=== PATIENT | male | born 1940 | race Asian ===

== ENCOUNTER 2021-03-04 17:43 | Emergency (ER) ==
[2021-03-04 18:39] LABS: #Basophils 0.1 10x3/uL (0.0-0.2); #Eosinphils 0.1 10x3/uL (0.0-0.5); #Neutrophils 4.6 10x3/uL (1.5-8.4); %Basophils 0.8 % (0.0-2.0); %Eosinophils 1.2 % (0.0-6.0); %Lymphocytes 12.3 % (18.0-47.0); %Monocytes 15.1 % (0.0-10.0); %Neutrophils 70.3 % (40.0-75.0); Mean Corpuscular HGB CONC 33.7 g/dL (32.0-36.0); Mean Platelet Volume 9.9 fl (7.4-10.4); Platelet Count 211 10x3/uL (150-450); RBC Distribution Width 13.4 % (11.5-14.5); Red Blood Cell (RBC) Count 4.38 10x6/uL (4.32-5.72); White Blood Cell (WBC) Count 6.5 10x3/uL (3.5-10.5)
[2021-03-04 18:52] LABS: ALT (SGPT) 20 U/L (8-55); Albumin 3.8 g/dL (3.4-4.8); Alkaline Phosphatase 65 U/L (40-110); Anion Gap 15 mmol/L (10-20); BUN (Urea Nitrogen) 13 mg/dL (8.4-25.7); Bilirubin, Total 0.4 mg/dL (0.2-1.2); Calc. Creatinine Clearance 0 mL/min (70-130); Carbon Dioxide 24 mmol/L (23-31); Chloride 99 mmol/L (98-107); Globulin 3.2 g/dL (2.4-3.5); Glucose 108 mg/dL (83-110); Potassium 5.4 mmol/L (3.5-5.1); Sodium 133 mmol/L (136-145)
[2021-03-04 19:01] LABS: AST (SGOT) 18 U/L (5-34)
[2021-03-04] MEDS ORDERED: Aspirin Chewable 81 MG TAB ONE (19:30)
[2021-03-04] MEDS ORDERED: Acetaminophen 500 MG TAB ONE (19:31)
== END 2021-03-04 20:11 | disposition home or self-care (01) ==
LOC: CSHERS 17:43
DX: R07.89 Other chest pain (principal); I10 Essential (primary) hypertension; K21.9 Gastro-esophageal reflux disease without esophagitis; Z79.899 Other long term (current) drug therapy; Z79.82 Long term (current) use of aspirin
CPT/HCPCS: 71045; 80053; 84484; 85025; 93005